=== PATIENT | male | born 1930 | race Caucasian/White ===

== ENCOUNTER 2018-07-23 15:20 | Emergency (ER) | payer MEDICARE ==
[~2018-07-23] VITALS: Ht 182.9 cm; Wt 76.8 kg
[~2018-07-23 15:20] MED LIST: AMLO5TAB PO; ASPI-1053 PO; CLOP75TA33 PO; CYCL-1 PO; LOSA25TA96 PO; PRAV20TA4 PO; RANI150T44 PO
[2018-07-23] MEDS ORDERED: aspirin 325mg tablet PO ONE (15:50)
[2018-07-23] MEDS ORDERED: LIDOcaine 5% patch TP ONE (15:50)
[2018-07-23] MEDS ORDERED: orphenadrine citrate 60mg/2ml inj. IM ONE ×2 (15:50→16:00)
[2018-07-23] MEDS ORDERED: HYDROcodone/acetaminophen 5mg/325mg tablet PO ONE (15:50)
[2018-07-23] MEDS ORDERED: acetaminophen 325mg tablet PO ONE (15:50)
[2018-07-23] MEDS ORDERED: ketorolac tromethamine 15mg/ml inj. IM ONE (15:50)
[2018-07-23] MEDS ORDERED: LIDO700A32 TOP (17:28)
[2018-07-23] MEDS ORDERED: CYCL-394 PO (17:28)
[2018-07-23] MEDS ORDERED: HYDR-3965 PO (17:28)
[2018-07-23 17:45] VITALS: BP 160/86
== END 2018-07-23 17:47 | disposition home or self-care (01) ==
LOC: ER 15:21
DX: G89.29 Other chronic pain (principal); M54.5 Low back pain; I10 Essential (primary) hypertension; M19.90 Unspecified osteoarthritis, unspecified site; Z98.890 Other specified postprocedural states; Z88.0 Allergy status to penicillin; Z79.82 Long term (current) use of aspirin; Z79.899 Other long term (current) drug therapy
CPT/HCPCS: 96372; 99284; J1885; J2360